=== PATIENT | female | born 1945 | race Asian ===

== ENCOUNTER 2017-01-26 00:09 | Emergency (ER) | payer MEDICARE, OTHER ==
[~2017-01-26] VITALS: Ht 154.9 cm; Wt 85.0 kg
[2017-01-26 00:52] LABS: GLUCOSE,POINT OF CARE 286 MG/DL (70-110)
[2017-01-26] MEDS ORDERED: ASPI-1093 PO (01:06)
[2017-01-26] MEDS ORDERED: MIDO2.5T PO (01:06)
[2017-01-26] MEDS ORDERED: MELA3TAB10 PO (01:06)
[2017-01-26] MEDS ORDERED: RANI150T12 PO (01:06)
[2017-01-26] MEDS ORDERED: GABA100C PO (01:06)
[2017-01-26] MEDS ORDERED: ATOR40TA28 PO (01:06)
[2017-01-26] MEDS ORDERED: DOCU250C91 PO (01:06)
[2017-01-26] MEDS ORDERED: LORA1TAB3 PO (01:06)
[2017-01-26] MEDS ORDERED: INSU100I3 SQ (01:06)
[2017-01-26] MEDS ORDERED: LOSA50TA37 PO (01:06)
[2017-01-26] MEDS ORDERED: MONT10TA21 PO (01:06)
[2017-01-26] MEDS ORDERED: PANT20TA PO (01:06)
[2017-01-26] MEDS ORDERED: INSU3INS3 SQ (01:06)
[2017-01-26] MEDS ORDERED: FEXO-117 PO (01:06)
[2017-01-26] MEDS ORDERED: PRED1DRO OS (01:06)
[2017-01-26] MEDS ORDERED: BRIM5DRO11 OD (01:06)
[2017-01-26] MEDS ORDERED: SEVEC800 PO (01:06)
[2017-01-26 01:09] LABS: BASOPHILS # (AUTO) 0.06 K/uL (0.00-0.20); EOSINOPHILS # (AUTO) 0.45 K/uL (0.00-0.70); EOSINOPHILS % (AUTO) 7.94 % (1.0-6.0); HEMATOCRIT 28.9 % (36-46); HEMOGLOBIN 9.5 g/dL (12.0-16.0); LYMPHOCYTES # (AUTO) 1.3 K/uL (1.0-4.8); LYMPHOCYTES % (AUTO) 23.4 % (22.0-44.0); MEAN CORPUSCULAR HEMOGLOBIN 33.2 pg (26.0-34.0); MEAN CORPUSCULAR HGB CONC 33.1 G/dL (31.0-37.0); MEAN CORPUSCULAR VOLUME 100 fL (80-100); MONOCYTES # (AUTO) 0.5 K/uL (0.1-1.0); MONOCYTES % (AUTO) 9.1 % (2.0-9.0); NEUTROPHILS # (AUTO) 3.3 K/uL (1.8-7.7); NEUTROPHILS % (AUTO) 58.6 % (40.0-70.0); PLATELET COUNT (AUTO) 285 K/uL (150-450); RED BLOOD CELL COUNT(AUTO) 2.87 MIL/uL (4.00-5.20); RED CELL DISTRIBUTION WIDTH 16.6 % (11.5-14.5); WHITE BLOOD COUNT (AUTO) 5.6 K/uL (4.5-11.0)
[2017-01-26 01:43] LABS: PROTHROMBIN TIME 10.1 SEC (9.4-11.6)
[2017-01-26 01:48] LABS: CALCIUM, TOTAL 8.5 mg/dL (8.8-10.5); CREATININE 5.71 mg/dL (0.60-1.30); POTASSIUM 4.1 mmol/L (3.5-5.1)
[2017-01-26 01:52] LABS: RBC MORPHOLOGY COMMENT ABNORMAL RBC MORPH
[2017-01-26 03:32] VITALS: BP 120/60
== END 2017-01-26 03:41 | disposition home or self-care (01) ==
LOC: EMS 00:12
DX: T82.590A Other mechanical complication of surgically created arteriovenous fistula, initial encounter (principal); E11.22 Type 2 diabetes mellitus with diabetic chronic kidney disease; N18.6 End stage renal disease; E11.65 Type 2 diabetes mellitus with hyperglycemia; Z99.2 Dependence on renal dialysis; Z79.4 Long term (current) use of insulin
CPT/HCPCS: 82962; 99284

== ENCOUNTER 2017-03-24 21:10 | Emergency (ER) | payer MEDICARE, OTHER ==
[~2017-03-24] VITALS: Ht 152.4 cm; Wt 82.5 kg
[~2017-03-24 21:10] MED LIST: ASPI-1093 PO; ATOR40TA28 PO; BRIM5DRO11 OD; DOCU250C91 PO; FEXO-117 PO; GABA100C PO; INSU100I3 SQ; INSU3INS3 SQ; LORA1TAB3 PO; LOSA50TA37 PO; MELA3TAB10 PO; MIDO2.5T PO; MONT10TA21 PO; PANT20TA PO; PRED1DRO OS; RANI150T12 PO; SEVEC800 PO
[2017-03-24 21:41] LABS: BASOPHILS % (AUTO) 0.6 % (0.0-2.0); EOSINOPHILS % (AUTO) 7.5 % (1.0-6.0); HEMATOCRIT 34.5 % (36-46); HEMOGLOBIN 11.5 g/dL (12.0-16.0); LYMPHOCYTES # (AUTO) 1.2 K/uL (1.0-4.8); LYMPHOCYTES % (AUTO) 18.3 % (22.0-44.0); MEAN CORPUSCULAR HEMOGLOBIN 32.4 pg (26.0-34.0); MEAN CORPUSCULAR HGB CONC 33.4 G/dL (31.0-37.0); MEAN CORPUSCULAR VOLUME 97 fL (80-100); MONOCYTES # (AUTO) 0.4 K/uL (0.1-1.0); MONOCYTES % (AUTO) 6.5 % (2.0-9.0); NEUTROPHILS # (AUTO) 4.3 K/uL (1.8-7.7); NEUTROPHILS % (AUTO) 67.1 % (40.0-70.0); PLATELET COUNT (AUTO) 287 K/uL (150-450); RED BLOOD CELL COUNT(AUTO) 3.55 MIL/uL (4.00-5.20); RED CELL DISTRIBUTION WIDTH 18.1 % (11.5-14.5); WHITE BLOOD COUNT (AUTO) 6.5 K/uL (4.5-11.0)
[2017-03-24 21:53] LABS: CALCIUM, TOTAL 8.9 mg/dL (8.8-10.5); CREATININE 4.24 mg/dL (0.60-1.30); POTASSIUM 4.1 mmol/L (3.5-5.1)
[2017-03-24 21:56] LABS: ALBUMIN 3.9 g/dL (3.4-5.0); BILIRUBIN,TOTAL 0.3 mg/dL (0.1-1.0); TOTAL PROTEIN, SERUM 8.7 g/dL (6.4-8.2)
[2017-03-24] MEDS ORDERED: CARV3 PO (22:00)
[2017-03-24] MEDS ORDERED: OXYB5 PO (22:01)
[2017-03-24 22:28] LABS: RBC MORPHOLOGY COMMENT ABNORMAL RBC MORPH
[2017-03-24] MEDS ORDERED: CloNIDine HCL 0.1 MG TABLET PO ONE (23:00)
[2017-03-25] MEDS ORDERED: FentaNYL CITRATE-PF 100 MCG/2 ML VIAL IVP ONE
[2017-03-25 00:54] VITALS: BP 172/78
== END 2017-03-25 01:22 | disposition home or self-care (01) ==
LOC: EMS 21:14
DX: I13.11 Hypertensive heart and chronic kidney disease without heart failure, with stage 5 chronic kidney disease, or end stage renal disease (principal); E11.22 Type 2 diabetes mellitus with diabetic chronic kidney disease; N18.6 End stage renal disease; Z99.2 Dependence on renal dialysis; Z79.4 Long term (current) use of insulin; Z79.82 Long term (current) use of aspirin
CPT/HCPCS: 36415; 70450; 71010; 80053; 82962; 83880; 84484; 85025; 93005; 96374; 99285; J3010

== ENCOUNTER 2017-11-20 11:07 | Emergency (ER) | payer MEDICARE, OTHER ==
[~2017-11-20] VITALS: Ht 154.9 cm; Wt 85.0 kg
[~2017-11-20 11:07] MED LIST changes: -ASPI-1093 PO; +ASPI-1182 PO; +CARV3 PO; -DOCU250C91 PO; -FEXO-117 PO; -LOSA50TA37 PO; -MONT10TA21 PO; +OXYB5 PO; -RANI150T12 PO
[2017-11-20 11:17] LABS: GLUCOSE,POINT OF CARE 221 MG/DL (70-110)
[2017-11-20] MEDS ORDERED: HYDR25TA84 PO (11:29)
[2017-11-20] MEDS ORDERED: OMEP20 PO (11:29)
[2017-11-20] MEDS ORDERED: CETI-290 PO (11:29)
[2017-11-20] MEDS ORDERED: HYOS-28 PO (11:29)
[2017-11-20] MEDS ORDERED: NIFE30TA5 PO (11:29)
[2017-11-20] MEDS ORDERED: INSLAN SQ (11:29)
[2017-11-20 12:50] LABS: BASOPHILS % (AUTO) 1.5 % (0.0-2.0); EOSINOPHILS % (AUTO) 11.7 % (1.0-6.0); HEMATOCRIT 35.3 % (36-46); HEMOGLOBIN 11.7 g/dL (12.0-16.0); LYMPHOCYTES # (AUTO) 1.4 K/uL (1.0-4.8); LYMPHOCYTES % (AUTO) 22.1 % (22.0-44.0); MEAN CORPUSCULAR HEMOGLOBIN 31.7 pg (26.0-34.0); MEAN CORPUSCULAR HGB CONC 33.1 G/dL (31.0-37.0); MEAN CORPUSCULAR VOLUME 96 fL (80-100); MONOCYTES # (AUTO) 0.4 K/uL (0.1-1.0); MONOCYTES % (AUTO) 6.4 % (2.0-9.0); NEUTROPHILS # (AUTO) 3.6 K/uL (1.8-7.7); NEUTROPHILS % (AUTO) 58.3 % (40.0-70.0); PLATELET COUNT (AUTO) 243 K/uL (150-450); RED BLOOD CELL COUNT(AUTO) 3.68 MIL/uL (4.00-5.20); RED CELL DISTRIBUTION WIDTH 15.8 % (11.5-14.5)
[2017-11-20 13:01] LABS: CREATININE 5.46 mg/dL (0.60-1.30); POTASSIUM 3.8 mmol/L (3.5-5.1)
[2017-11-20 13:06] LABS: ALBUMIN 3.7 g/dL (3.4-5.0); BILIRUBIN,TOTAL 0.3 mg/dL (0.1-1.0); TOTAL PROTEIN, SERUM 7.9 g/dL (6.4-8.2)
[2017-11-20 13:24] LABS: APPEARANCE,URINE CLOUDY (CLEAR); GLUCOSE, URINE (UA) 100 mg/dL (NEGATIVE); KETONES,URINE TRACE mg/dL (NEGATIVE); LEUKOCYTE ESTERASE ,URINE MODERATE (NEGATIVE); NITRATE,URINE NEGATIVE (NEGATIVE); OCCULT BLOOD,URINE TRACE (NEGATIVE); PH,URINE 5.5 (5.0-8.0); PROTEIN,URINE SEE CONFIRM (NEGATIVE)
[2017-11-20 13:25] LABS: BILIRUBIN,URINE PRELIM. POSITIVE (NEGATIVE)
[2017-11-20 13:34] LABS: BACTERIA,URINE Few /HPF (None Seen); SQUAMOUS EPITHELIAL CELL,UR Moderate /LPF (None Seen); SULFOSALICYLIC ACID,URINE 2+ (Negative)
[2017-11-20 15:00] VITALS: BP 178/85
== END 2017-11-20 15:42 | disposition home or self-care (01) ==
LOC: EMS 11:07
DX: K59.00 Constipation, unspecified (principal); E11.22 Type 2 diabetes mellitus with diabetic chronic kidney disease; N18.6 End stage renal disease; Z99.2 Dependence on renal dialysis; Z79.4 Long term (current) use of insulin; Z79.82 Long term (current) use of aspirin
CPT/HCPCS: 82962; 87086; 99285

== ENCOUNTER 2018-03-10 00:57 | Emergency (ER) | payer MEDICARE, OTHER ==
[~2018-03-10] VITALS: Ht 154.9 cm; Wt 84.5 kg
[~2018-03-10 00:57] MED LIST changes: +CETI-290 PO; +HYDR25TA84 PO; +HYOS-28 PO; +INSLAN SQ; -INSU3INS3 SQ; -MIDO2.5T PO; +NIFE30TA5 PO; +OMEP20 PO; -OXYB5 PO; -PANT20TA PO
[2018-03-10] MEDS ORDERED: NITR.4 SL (01:06)
[2018-03-10 01:08] LABS: GLUCOSE,POINT OF CARE 245 MG/DL (70-110)
[2018-03-10 02:07] LABS: HEMATOCRIT 35.6 % (36-46); HEMOGLOBIN 12.2 g/dL (12.0-16.0); MEAN CORPUSCULAR HEMOGLOBIN 32.4 pg (26.0-34.0); MEAN CORPUSCULAR HGB CONC 34.4 G/dL (31.0-37.0); MEAN CORPUSCULAR VOLUME 94 fL (80-100); RED BLOOD CELL COUNT(AUTO) 3.78 MIL/uL (4.00-5.20); RED CELL DISTRIBUTION WIDTH 16.2 % (11.5-14.5)
[2018-03-10 02:20] LABS: INR 0.9 (0.9-1.1); PROTHROMBIN TIME 9.7 SEC (9.4-11.6)
[2018-03-10 02:23] LABS: ANION GAP 10 mmol/L (8-16); CALCIUM, TOTAL 8.9 mg/dL (8.8-10.5); CARBON DIOXIDE 28 mmol/L (22-29); CHLORIDE 94 mmol/L (98-107); GLOMERULAR FILTR. RATE CALC 8 mL/min (>60); GLUCOSE,RANDOM 242 mg/dL (70-110); POTASSIUM 3.4 mmol/L (3.5-5.1); SODIUM SERUM 132 mmol/L (136-145); UREA NITROGEN, BLOOD 20 mg/dL (7-18)
[2018-03-10 02:32] LABS: BAND NEUTROPHILS % (MANUAL) 0 % (0-5); EOSINOPHILS % (MANUAL) 13 % (1-6); LYMPHOCYTES % (MANUAL) 17 % (22-44); MONOCYTES % (MANUAL) 3 % (2-9); PLATELET COUNT (AUTO) 240 K/uL (150-450); SEGMENTED NEUTROPHILS % 67 % (40-70)
[2018-03-10 02:34] LABS: B-TYPE NATRIURETIC PEPTIDE 81 pg/mL (0-100)
[2018-03-10 02:49] LABS: ALANINE AMINOTRANSFERASE 21 U/L (12-78); ALBUMIN 3.6 g/dL (3.4-5.0); ALKALINE PHOSPHATASE 118 U/L (46-116); ASPARTATE AMINOTRANSFERASE 10 U/L (15-37); BILIRUBIN,TOTAL 0.3 mg/dL (0.1-1.0); CREATINE KINASE MB 1.4 ng/mL (0-5); CREATINE KINASE, TOTAL 170 U/L (26-192); TOTAL PROTEIN, SERUM 7.6 g/dL (6.4-8.2)
[2018-03-10 05:37] VITALS: BP 130/67
== END 2018-03-10 05:40 | disposition home or self-care (01) ==
LOC: EDUNIT# 00:57 → EMS 00:58
DX: R07.89 Other chest pain (principal); E11.22 Type 2 diabetes mellitus with diabetic chronic kidney disease; N18.9 Chronic kidney disease, unspecified; Z79.4 Long term (current) use of insulin; Z79.899 Other long term (current) drug therapy; Z99.2 Dependence on renal dialysis
CPT/HCPCS: 93005; 99285

== ENCOUNTER 2018-03-25 22:58 | Emergency (ER) | payer MEDICARE, OTHER ==
[~2018-03-25] VITALS: Ht 154.9 cm; Wt 77.3 kg
[~2018-03-25 22:58] MED LIST changes: +NITR.4 SL
[2018-03-25 23:09] LABS: GLUCOSE,POINT OF CARE 222 MG/DL (70-110)
[2018-03-26 00:06] LABS: BASOPHILS % (AUTO) 1.3 % (0.0-2.0); EOSINOPHILS % (AUTO) 12.3 % (1.0-6.0); HEMATOCRIT 37.4 % (36-46); HEMOGLOBIN 12.7 g/dL (12.0-16.0); LYMPHOCYTES # (AUTO) 1.4 K/uL (1.0-4.8); LYMPHOCYTES % (AUTO) 19.4 % (22.0-44.0); MEAN CORPUSCULAR HEMOGLOBIN 32.3 pg (26.0-34.0); MEAN CORPUSCULAR HGB CONC 33.9 G/dL (31.0-37.0); MEAN CORPUSCULAR VOLUME 95 fL (80-100); MONOCYTES # (AUTO) 0.5 K/uL (0.1-1.0); NEUTROPHILS # (AUTO) 4.2 K/uL (1.8-7.7); PLATELET COUNT (AUTO) 288 K/uL (150-450); RED BLOOD CELL COUNT(AUTO) 3.93 MIL/uL (4.00-5.20); RED CELL DISTRIBUTION WIDTH 16.9 % (11.5-14.5)
[2018-03-26 00:15] LABS: CREATININE 4.09 mg/dL (0.60-1.30); POTASSIUM 3.5 mmol/L (3.5-5.1)
[2018-03-26 00:20] LABS: ALBUMIN 3.7 g/dL (3.4-5.0); BILIRUBIN,TOTAL 0.4 mg/dL (0.1-1.0); TOTAL PROTEIN, SERUM 7.8 g/dL (6.4-8.2)
[2018-03-26] MEDS ORDERED: ONDANSETRON HCL 4 MG TABLET PO ONE (00:45)
[2018-03-26 04:35] VITALS: BP 169/79
== END 2018-03-26 04:37 | disposition home or self-care (01) ==
LOC: EMS 22:59
DX: E11.22 Type 2 diabetes mellitus with diabetic chronic kidney disease (principal); N18.6 End stage renal disease; R11.0 Nausea; Z79.4 Long term (current) use of insulin; Z99.2 Dependence on renal dialysis; Z79.82 Long term (current) use of aspirin
CPT/HCPCS: 36415; 71045; 80053; 82962; 83690; 83880; 84484; 85025; 93005; 99285; Q0162